=== PATIENT | female | born 1985 | race Caucasian/White ===

== ENCOUNTER 2017-09-01 10:32 | Emergency (ER) | payer OTHER ==
[~2017-09-01] VITALS: Ht 152.4 cm; Wt 81.7 kg
[2017-09-01 11:15] LABS: ABSOLUTE EOSINOPHILS 0.1 thou/uL (0.0-0.7); ABSOLUTE LYMPHOCYTES 1.2 thou/uL (0.8-5.3); ABSOLUTE MONOCYTES 0.3 thou/uL (0.0-1.2); ABSOLUTE NEUTROPHILS 8.9 thou/uL (1.6-8.1); BASOPHILS 0.4 %; EOSINOPHILS 0.5 %; HEMATOCRIT 41.8 % (37.0-47.0); HEMOGLOBIN 14.3 gm/dL (12.0-15.0); MCH 28.9 pg (26.0-34.0); MCHC 34.1 g/dL (28.0-37.0); MCV 84.7 fL (80.0-100.0); MONOCYTES 3.3 %; MPV 7.6 fl. (7.2-11.1); NUCLEATED RBCS 0 /100WBC; PLATELET COUNT* 314 thou/uL (150-400); POLYS 84.8 %; RBC 4.94 mil/uL (4.20-5.00); RDW-CV 13.2 % (10.5-14.5); WBC 10.5 thou/uL (4.0-11.0)
[2017-09-01 11:23] LABS: CALCIUM 8.8 mg/dL (8.5-10.1); CREATININE 0.8 mg/dL (0.6-1.3); POTASSIUM 3.6 mmol/L (3.5-5.1)
[2017-09-01 11:27] LABS: ALBUMIN 3.9 g/dL (3.4-5.0); TOTAL BILIRUBIN 0.4 mg/dL (<0.1-1.0); TOTAL PROTEIN 7.5 g/dL (6.4-8.2)
[2017-09-01 12:24] LABS: URINE BILIRUBIN NEGATIVE (Negative); URINE BLOOD NEGATIVE (Negative); URINE CLARITY CLEAR; URINE COLOR YELLOW; URINE GLUCOSE-RANDOM NEGATIVE (Negative); URINE LEUKOCYTES-REFLEX NEGATIVE (Negative); URINE NITRITE-REFLEX NEGATIVE (Negative); URINE PROTEIN TRACE (Negative); URINE UROBILINOGEN 0.2 E.U./dl (0.2-1.0)
[2017-09-01 12:30] LABS: URINE KETONES 3+ (Negative); URINE REDUCING SUBSTANCE NEGATIVE (Negative)
[2017-09-01] MEDS ORDERED: ZOFRAN ODT4 MG PO (15:59)
[2017-09-01] MEDS ORDERED: TRAMADOL 50 MG50 MG PO (16:02)
[2017-09-01 16:23] VITALS: BP 86/60
== END 2017-09-01 16:24 | disposition home or self-care (01) ==
LOC: M.ERS 10:32
PROVIDERS: Nurse Practitioner Family
DX: R10.30 Lower abdominal pain, unspecified (principal)

== ENCOUNTER 2017-10-01 08:56 | Emergency (ER) | payer OTHER ==
[~2017-10-01] VITALS: Ht 154.9 cm; Wt 89.4 kg
[~2017-10-01 08:56] MED LIST: TRAMADOL 50 MG50 MG PO; ZOFRAN ODT4 MG PO
[2017-10-01 09:11] LABS: URINE BILIRUBIN NEGATIVE (Negative); URINE BLOOD 1+ (Negative); URINE CLARITY CLEAR; URINE COLOR YELLOW; URINE GLUCOSE-RANDOM NEGATIVE (Negative); URINE LEUKOCYTES-REFLEX NEGATIVE (Negative); URINE NITRITE-REFLEX NEGATIVE (Negative); URINE PROTEIN 1+ (Negative); URINE SPECIFIC GRAVITY 1.025 (1.005-1.030); URINE UROBILINOGEN 0.2 E.U./dl (0.2-1.0)
[2017-10-01 09:13] LABS: URINE KETONES 3+ (Negative)
[2017-10-01 09:14] LABS: BACTERIA-REFLEX 1-9 Few /HPF (None Seen); CASTS None Seen /LPF (None Seen); CRYSTALS None Seen /LPF (None Seen); MUCUS 4-6 Moderate strn/LPF (None Seen); SQUAMOUS 4-10 Moderate /LPF (0-3); URINE RBC 0-2 Rare /HPF (0-2); URINE WBC-REFLEX 0-5 Rare /HPF (0-5)
[2017-10-01 09:45] LABS: ABSOLUTE LYMPHOCYTES 1.3 thou/uL (0.8-5.3); ABSOLUTE MONOCYTES 0.3 thou/uL (0.0-1.2); ABSOLUTE NEUTROPHILS 7.5 thou/uL (1.6-8.1); BASOPHILS 0.4 %; EOSINOPHILS 0.5 %; HEMATOCRIT 40.1 % (37.0-47.0); HEMOGLOBIN 13.7 gm/dL (12.0-15.0); LYMPHOCYTES 14.2 %; MCHC 34.1 g/dL (28.0-37.0); MCV 84.9 fL (80.0-100.0); MONOCYTES 3.5 %; NUCLEATED RBCS 0 /100WBC; PLATELET COUNT* 310 thou/uL (150-400); POLYS 81.4 %; RBC 4.73 mil/uL (4.20-5.00); RDW-CV 13.2 % (10.5-14.5); WBC 9.2 thou/uL (4.0-11.0)
[2017-10-01 09:49] LABS: ANION GAP 14 mmol/L (7-16); BUN 9 mg/dL (7-18); CALCIUM 9.4 mg/dL (8.5-10.1); CHLORIDE 102 mmol/L (98-107); CO2 20 mmol/L (21-32); CREATININE 0.8 mg/dL (0.6-1.3); GLUCOSE 124 mg/dL (70-99); POTASSIUM 3.5 mmol/L (3.5-5.1); SODIUM 136 mmol/L (136-145)
[2017-10-01 09:56] LABS: ALBUMIN 4.2 g/dL (3.4-5.0); ALKALINE PHOSPHATASE 58 U/L (46-116); LIPASE 87 U/L (73-393); SGOT 18 U/L (15-37); SGPT 35 U/L (30-65); TOTAL BILIRUBIN 0.6 mg/dL (<0.1-1.0); TOTAL PROTEIN 7.7 g/dL (6.4-8.2); TROPONIN-I LEVEL <0.06 ng/mL (<0.06)
[2017-10-01] MEDS ORDERED: NORCO 5-325 TA1 EACH PO (10:48)
[2017-10-01] MEDS ORDERED: CIPRO500 MG PO (10:48)
[2017-10-01] MEDS ORDERED: FLAGYL500 MG PO (10:48)
[2017-10-01 11:35] VITALS: BP 124/80
--- NOTE | 2017-10-02 10:04 | EKG ---
[place] [address] ELECTROCARDIOGRAM REPORT Name: JANE JOHNSON Room: [facility] [place]#: [id number] Admission: 10/01/17 Attend Phys: Discharge: 10/01/17 Date of : 81 Report #: [id number] THIS REPORT FOR: //name// [facility] ED Test Date: 2017-10-01 Test Time: 09:42:42 Pat Name: JANE JOHNSON Department: Room: Gender: F Principal Software Architect: Elizabeth WINSLOW : 1985 Requested By: Fortunato Gonzalez Order Number: [id number] MD: Sha York Measurements Intervals [place] Rate: 52 P: 6 WV: 141 QRS: 50 QRSD: 110 T: 45 QT: 493 QTc: 459 Interpretive Statements Sinus rhythm Low voltage, precordial leads RSR' in V1 or V2, right VCD or RVH No previous ECG available for comparison Electronically Signed On 10-02-2017 10:04:40 CDT by Sha York [email or web address] <ELECTRONICALLY SIGNED> By: Sha York MD, [facility] 10/02/17 1004 1 1 Sha York MD, [facility] /EPI
== END 2017-10-01 11:35 | disposition home or self-care (01) ==
LOC: M.ERS 08:56
PROVIDERS: Emergency Medicine Emergency Medical Services
DX: K52.9 Noninfective gastroenteritis and colitis, unspecified (principal)